=== PATIENT | female | born 1980 | race Caucasian/White ===

== ENCOUNTER 2018-12-15 22:36 | Observation (INO) ==
[2018-12-15 22:59] LABS: Basophils % 0.3 % (0.0-0.8); Eosinophils # 0.2 10*3/uL (0.0-0.87); Hematocrit 37.9 VOL% (35.7-47.0); Hemoglobin 11.6 GM/DL (12.0-16.0); Immature Granulocytes % 0.7 %; Immature Granulocytes Absolute 0.09 #; Lymphocytes # 2.5 10*3/uL (1.4-4.0); Lymphocytes % 20.2 % (21.3-54.2); Mean Corpuscular HGB Conc 30.6 GM/DL (32-36); Mean Corpuscular Volume 90.2 FL (87-102); Mean Platelet Volume 12.6 FL (9.6-12.0); Monocytes % 6.1 % (1.7-12.7); Neutrophils % 70.7 % (38.7-73.9); Platelet Count 138 T/CUMM (130-400); Red Cell Distribution Width 13.9 % (9.3-17.3); White Blood Count 12.1 T/CUMM (4-12)
[2018-12-15 23:23] LABS: Alanine Aminotransferase 22 U/L (13-56); Albumin 3.3 G/DL (3.4-5.0); Alkaline Phosphatase 128 U/L (45-117); Aspartate Amino Transferase 7 U/L (0-37); Bilirubin,Total < 0.39 MG/DL (0.2-1.0); Blood Urea Nitrogen 12 MG/DL (7-18); Calcium 8.9 MG/DL (8.5-10.1); Glucose 141 MG/DL (74-106); Osmolality,Calculated 280.4 MOS/KG (273-304); Total Protein 7.7 G/DL (6.4-8.3)
[2018-12-16] MEDS ORDERED: ENOXAPARIN 120 MG/0.8 ML SYRINGE SUBCUT STA (01:15)
[2018-12-16] MEDS ORDERED: ENOXAPARIN 120 MG/0.8 ML SYRINGE SUBCUT ONE (01:16)
[2018-12-16] MEDS ORDERED: MORPHINE 4 MG/1 ML VIAL IV STA (01:38)
[2018-12-16] MEDS ORDERED: NITROGLYCERIN SL 0.4 MG TABLET SL PRN (02:21)
[2018-12-16] MEDS ORDERED: MORPHINE 4 MG/1 ML VIAL IV PRN (02:24)
[2018-12-16] MEDS ORDERED: ONDANSETRON 4 MG/2 ML VIAL IV PRN (02:24)
[2018-12-16] MEDS ORDERED: DOCUSATE SODIUM 100 MG CAPSULE PO PRN (02:24)
[2018-12-16] MEDS ORDERED: ACETAMINOPHEN 325 MG TABLET PO PRN (02:24)
[2018-12-16] MEDS ORDERED: ZALEPLON 5 MG CAPSULE PO PRN (02:24)
[2018-12-16 04:05] LABS: Basophils % 0.4 % (0.0-0.8); Eosinophils # 0.3 10*3/uL (0.0-0.87); Eosinophils % 2.4 % (0.00-10.9); Hematocrit 36.3 VOL% (35.7-47.0); Hemoglobin 11.3 GM/DL (12.0-16.0); Immature Granulocytes % 0.6 %; Immature Granulocytes Absolute 0.06 #; Lymphocytes # 2.6 10*3/uL (1.4-4.0); Lymphocytes % 24.2 % (21.3-54.2); Mean Corpuscular HGB Conc 31.1 GM/DL (32-36); Mean Corpuscular Volume 89.4 FL (87-102); Mean Platelet Volume 12.9 FL (9.6-12.0); Monocytes % 6.9 % (1.7-12.7); Neutrophils % 65.5 % (38.7-73.9); Platelet Count 124 T/CUMM (130-400); Red Blood Count 4.06 MC/CUMM (3.8-5.5); Red Cell Distribution Width 13.9 % (9.3-17.3); White Blood Count 10.8 T/CUMM (4-12)
[2018-12-16 04:20] LABS: Calcium 8.5 MG/DL (8.5-10.1); Osmolality,Calculated 278.4 MOS/KG (273-304)
[2018-12-16] MEDS: KETOROLAC 30 MG/1 ML VIAL IV SCH ×3 (10:32→20:27)
[2018-12-16] MEDS: LISINOPRIL/HCTZ 20-25 MG TABLET PO SCH (10:34)
[2018-12-17] MEDS: KETOROLAC 30 MG/1 ML VIAL IV SCH (03:04)
[2018-12-17 04:36] LABS: Basophils # 0.1 10*3/uL (0.0-0.2); Basophils % 0.5 % (0.0-0.8); Eosinophils # 0.2 10*3/uL (0.0-0.87); Eosinophils % 2.3 % (0.00-10.9); Hematocrit 38.5 VOL% (35.7-47.0); Hemoglobin 11.8 GM/DL (12.0-16.0); Immature Granulocytes % 0.5 %; Immature Granulocytes Absolute 0.05 #; Lymphocytes # 2.1 10*3/uL (1.4-4.0); Lymphocytes % 20.1 % (21.3-54.2); Mean Corpuscular HGB Conc 30.6 GM/DL (32-36); Mean Corpuscular Volume 89.1 FL (87-102); Mean Platelet Volume 13.4 FL (9.6-12.0); Monocytes % 7.6 % (1.7-12.7); Platelet Count 132 T/CUMM (130-400); Red Blood Count 4.32 MC/CUMM (3.8-5.5); Red Cell Distribution Width 13.6 % (9.3-17.3); White Blood Count 10.3 T/CUMM (4-12)
[2018-12-17 05:02] LABS: Calcium 8.7 MG/DL (8.5-10.1); Osmolality,Calculated 281.3 MOS/KG (273-304)
[2018-12-17] MEDS ORDERED: ENOXAPARIN 40 MG/0.4 ML SYRINGE SUBCUT SCH (09:00)
[2018-12-17] MEDS: LISINOPRIL/HCTZ 20-25 MG TABLET PO SCH (09:26)
[2018-12-17 12:27] VITALS: BP 131/84
== END 2018-12-17 15:30 | disposition home or self-care (01) ==
LOC: N.ED 22:36 → N.4E 22:36 → SUPCPDRO 12-16 02:20 → N.4E 12-16 02:44
PROVIDERS: ADMIT Internal Medicine; ATTEND Internal Medicine